=== PATIENT | female | born 1970 ===

== ENCOUNTER 2018-10-11 14:11 | Emergency (ER) | payer OTHER ==
[2018-10-11 14:25] VITALS: RESP 18; TEMP 98.1; O2SAT 99
--- NOTE | 2018-10-11 15:26 | C.PDOC ---
History Of Present Illness 48-year-old female presents to the ED for evaluation of foreign body sensation in her throat. Patient states she was eating fish 6 days ago and thinks that a fish bone may have gotten stuck on the right side of her throat. Patient wears partial dentures in her upper teeth so she initially did not feel the sensation of her swallowing the fish bone. Patient was evaluated by Dr. Porter today, who scoped her and did not visualized a bone. Patient presents to the ED as recommended by Dr. Porter for a CT neck scan to rule out foreign body. Patient denies sore throat, odynophagia, dysphagia, neck pain, cough, shortness of breath, nausea and vomiting. Time Seen by Provider: 10/11/18 14:35 Chief Complaint (Nursing): Foreign Body History Per: Patient History/Exam Limitations: None Onset/Duration Of Symptoms: Days (6) Current Symptoms Are (Timing): Still Present Past Medical History Reviewed: Historical Data, Nursing Documentation, Vital Signs Vital Signs: Last Vital Signs Temp 98.1 F 10/11/18 14:18 Pulse 73 10/11/18 14:18 Resp 18 10/11/18 14:18 BP 164/94 H 10/11/18 14:18 Pulse Ox 99 10/11/18 14:18 - Medical History PMH: Hypercholesterolemia Surgical History: No Surg Hx Family History: States: Unknown Family Hx - Social History Hx Alcohol Use: No Hx Substance Use: No Review Of Systems ENT: Positive for: Other (right-sided throat discomfort, suspected foreign body ). Negative for: Throat Pain Respiratory: Negative for: Cough, Shortness of Breath Gastrointestinal: Negative for: Nausea, Vomiting Musculoskeletal: Negative for: Neck Pain Physical Exam - Physical Exam Appears: Non-toxic, No Acute Distress Skin: Normal Color, Warm, Dry Head: Atraumatic, Normacephalic Oral Mucosa: Moist Teeth: Dentures (partial, upper ) Throat: Normal, No Erythema, No Exudate, Other (no visible foreign body ) Neck: Supple Respiratory: Normal Breath Sounds, No Rales, No Rhonchi, No Wheezing Extremity: Normal ROM Neurological/Psych: Oriented x3, Normal Speech, Normal Cognition ED Course And Treatment - Laboratory Results Result Diagrams: 10/11/18 15:22 O2 Sat by Pulse Oximetry: 99 (on RA ) Pulse Ox Interpretation: Normal - CT Scan/US CT Neck Soft Tissue Other Rad Studies (CT/US): Read By Radiologist, Radiology Report Reviewed CT/US Interpretation: Date of service: 10/11/2018. PROCEDURE: CT NECK WITH CONTRAST. HISTORY: r/o foreign body in throat. COMPARISON: None available. TECHNIQUE: CT of the neck with intravenous contrast. Coronal and sagittal reformats generated. Intravenous contrast dose: Radiation dose: Total exam DLP = 470.36 mGy-cm. This CT exam was performed using one or more of the following dose reduction techniques: Automated exposure control, adjustment of the mA and/or kV according to patient size, and/or use of iterative reconstruction technique. FINDINGS: NASOPHARYNX: Unremarkable. SUPRAHYOID NECK: Unremarkable oropharynx, parapharyngeal space and retropharyngeal space. Calcifications are identified in the lymphoid tissue of the bilateral tonsillar pillars. No retained radiodense foreign body is seen within the pharynx, parapharyngeal or retropharyngeal spaces. Dental hardware related artifact obscures anterior and middle oral cavity with wires identified bilaterally related to dental hardware at the maxilla approaching the hard palate from the maxillary ridge is bilaterally. Mild lymphadenopathy is appreciated at the left suprahyoid level 2B neck soft tissues including a 2.3 x 1.4 cm left jugulodigastric lymph node and a 1 point 2.0 x 1.1 cm lymph node at the right. INFRAHYOID NECK: Unremarkable larynx, hypopharynx, and supraglottic space. Vocal cords intact. MASS: None. GLANDS: Parotid and submandibular glands unremarkable. Normal size thyroid gland, without nodule. CERVICAL SPINE: No fracture or focal lesion. VASCULAR STRUCTURES: Unremarkable. OTHER FINDINGS: Granuloma right upper lobe. IMPRESSION: No definite retained radiodense foreign body is appreciated excluding the oral cavity where dental hardware is identified. Multiple small calcifications are identified in the right greater than left tonsillar pillars, considered postinflammatory. No retained radiodense foreign body is appreciated within the pharynx, larynx were visualized esophagus. Note, dental hardware obscures anterior and middle oral cavity spaces. Mild suprahyoid neck lymphadenopathy. Medical Decision Making Medical Decision Making: Progress: CT Neck Soft Tissue ordered and reviewed. CMP ordered. CT Neck/Soft tissue results reviewed. Case discussed with Dr. Porter, who states he wants patient to be placed on Augmentin. 1738: CT scan results were discussed with Dr. Cisneros (Radiologist). Patient with noted enlargement of neck vein/vessel on the right, questionable jugular enlargement and some hyperlucency in occipital region of skull. Pending review by Dr. Cisneros. 19:21: Imaging review and no amendment made. Original impression stands. Patient notified of the results and will continue Augment for 10 days and Tylenol as needed for pain. Patient also informed of Granuloma noted on right upper lobe and advised to follow up with PMD in 1-2 days. Patient verbalized understanding and is in agreement with plan. Patient is stable for discharge. Disposition Discussed With .: Brian Porter Doctor Will See Patient In The: Office Counseled Patient/Family Regarding: Studies Performed, Diagnosis, Need For Followup, Rx Given - Disposition Disposition: HOME/ ROUTINE Disposition Time: 19:40 Condition: STABLE Additional Instructions: As per Dr. Porter, continue Augmentin bid for 10 days Tylenol as needed for pain Follow up with Dr. 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 - Scribe Statement The provider has reviewed the documentation as recorded by the Scribe (Elena Hendricks) All medical record entries made by the Scribe were at my direction and personally dictated by me. I have reviewed the chart and agree that the record accurately reflects my personal performance of the history, physical exam, medical decision making, and the department course for this patient. I have also personally directed, reviewed, and agree with the discharge instructions and disposition.
[2018-10-11 15:46] LABS: ALB/GLOB RATIO 1.2 (1.0-2.1); ALBUMIN 4.8 g/dL (3.5-5.0); BLOOD UREA NITROGEN 16 mg/dL (7-17); CALCIUM 9.9 mg/dl (8.6-10.4); GFR NON-AFRICAN AMERICAN > 60
[2018-10-11 15:55] LABS: ALT/SGPT 10 U/L (9-52); AST/SGOT 32 U/L (14-36)
[2018-10-11] MEDS ORDERED: Iodixanol 320 MG/ML 100 ML BOTTLE IV ONE (16:25)
[2018-10-11 17:10] VITALS: BP 126/75; PULSE 65
--- NOTE | 2018-10-11 17:23 | CT ---
Date of service: 10/11/2018 PROCEDURE: CT NECK WITH CONTRAST HISTORY: r/o foreign body in throat COMPARISON: None available. TECHNIQUE: CT of the neck with intravenous contrast. Coronal and sagittal reformats generated. Intravenous contrast dose: Radiation dose: Total exam DLP = 470.36 mGy-cm. This CT exam was performed using one or more of the following dose reduction techniques: Automated exposure control, adjustment of the mA and/or kV according to patient size, and/or use of iterative reconstruction technique. FINDINGS: NASOPHARYNX: Unremarkable. SUPRAHYOID NECK: Unremarkable oropharynx, parapharyngeal space and retropharyngeal space. Calcifications are identified in the lymphoid tissue of the bilateral tonsillar pillars. No retained radiodense foreign body is seen within the pharynx, parapharyngeal or retropharyngeal spaces. Dental hardware related artifact obscures anterior and middle oral cavity with wires identified bilaterally related to dental hardware at the maxilla approaching the hard palate from the maxillary ridge is bilaterally. Mild lymphadenopathy is appreciated at the left suprahyoid level 2B neck soft tissues including a 2.3 x 1.4 cm left jugulodigastric lymph node and a 1 point 2.0 x 1.1 cm lymph node at the right. INFRAHYOID NECK: Unremarkable larynx, hypopharynx, and supraglottic space. Vocal cords intact. MASS: None. GLANDS: Parotid and submandibular glands unremarkable. Normal size thyroid gland, without nodule. CERVICAL SPINE: No fracture or focal lesion. VASCULAR STRUCTURES: Unremarkable. OTHER FINDINGS: Granuloma right upper lobe. IMPRESSION: No definite retained radiodense foreign body is appreciated excluding the oral cavity where dental hardware is identified. Multiple small calcifications are identified in the right greater than left tonsillar pillars, considered postinflammatory. No retained radiodense foreign body is appreciated within the pharynx, larynx were visualized esophagus. Note, dental hardware obscures anterior and middle oral cavity spaces. Mild suprahyoid neck lymphadenopathy.
[2018-10-11] MEDS ORDERED: Amoxicillin-Clav 875-125 mg Tab PO STA (18:39)
[2018-10-11] MEDS ORDERED: Amoxicillin-Clav 875-125 mg Tab PO ONE (18:50)
== END 2018-10-11 20:19 | disposition home or self-care (01) ==
LOC: C.ER 14:11
DX: R09.89 Other specified symptoms and signs involving the circulatory and respiratory systems (principal); R07.0 Pain in throat
CPT/HCPCS: 70491; 80053; 81025; 99284; Q9967